=== PATIENT | male | born 1970 | race Two or more races ===

== ENCOUNTER 2020-08-22 23:48 | Emergency (ER) | payer OTHER ==
[~2020-08-22] VITALS: Ht 175.3 cm; Wt 109.3 kg
[2020-08-23] MEDS ORDERED: NORFLEX100MG PO (00:32)
[2020-08-23] MEDS ORDERED: NABUMETONE750 MG PO (00:32)
== END 2020-08-23 09:26 | disposition home or self-care (01) ==
LOC: ER 23:48
DX: M54.5 Low back pain (principal)

== ENCOUNTER → 2020-09-29 | Emergency (ER) | payer OTHER ==
[~2020-09-29] VITALS: Ht 165.1 cm; Wt 111.1 kg
[~2020-09-29] MED LIST: NABUMETONE750 MG PO; NORFLEX100MG PO
== END | disposition left against medical advice (07) ==
LOC: ER 12:23
DX: M25.572 Pain in left ankle and joints of left foot (principal); G89.11 Acute pain due to trauma